=== PATIENT | male | born 1955 | race Caucasian/White ===

== ENCOUNTER 2017-04-20 09:32 | Inpatient (IN) ==
[2017-04-20] MEDS ORDERED: CeFAZolin Syr 2,000MG/20 ML 2,000 MG/20 ML SYRINGE IVPB ONE (09:49)
[2017-04-20] MEDS ORDERED: Ringers Solution, Lactated 1,000 ML IVC SCH (10:00)
[2017-04-20] MEDS ORDERED: Dexamethasone 4 MG/ML VIAL ONE (10:06)
[2017-04-20] MEDS ORDERED: *HR* FentaNYL (PF) 100 MCG/2 ML VIAL ONE (10:11)
[2017-04-20] MEDS ORDERED: Ondansetron 4 MG/2 ML VIAL ONE (10:12)
[2017-04-20] MEDS ORDERED: Lidocaine -MPF 4% 5 ML AMPUL ONE (10:12)
[2017-04-20] MEDS ORDERED: Lidocaine -MPF 2% 2 ML VIAL ONE ×2 (10:12→10:47)
[2017-04-20] MEDS ORDERED: *HR* Propofol 200 MG/20 ML VIAL IVP ONE (10:12)
[2017-04-20] MEDS ORDERED: *HR* Remifentanil 2 MG VIAL IVP ONE (10:12)
[2017-04-20] MEDS ORDERED: *HR* Rocuronium Bromide 50 MG/5 ML VIAL ONE (10:12)
[2017-04-20] MEDS ORDERED: Lidocaine 1% 20 ML MDV ONE (10:36)
--- NOTE | 2017-04-20 10:36 | Anesthesia Evaluation PreOp ---
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), Other ( vertebral artery occlusion) Other Medical History: Denies Any Significant HX Anesthesia History: No Prior Anesthetic Complications, Past Anesthesia (Left CEA ,) Alcohol Use: occasionally Drug use: none Medications and Allergies Aspirin 325 mg PO HS 03/08/17 [History] Atorvastatin [Lipitor] 40 mg PO HS 03/08/17 [History] Clopidogrel Bisulfate [Plavix] 75 mg PO DAILY #30 tablet 04/09/17 [Rx] 3 Allergy/AdvReac Type Severity Reaction Status Date / Time Varenicline [From Chantix] AdvReac Migraine Verified 04/20/17 10:00 - Meds/Allergy Pre-op Review Medications Reviewed: Yes Allergies Reviewed: Yes Beta Blockers on Current Med List: No Anesthesia Results - Labs Laboratory Tests 04/09/17 04/09/17 04/09/17 08:40 08:40 08:40 WBC 6.3 Hgb 14.5 Hct 42.5 Plt Count 258 PT 9.9 INR 0.9 Sodium 139 Potassium 3.9 Chloride 109 H Carbon Dioxide 25 BUN 20 Creatinine 0.97 Est GFR ( Amer) > 60 Est GFR (Non-Af Amer) > 60 BUN/Creatinine Ratio 21 Glucose 108 H Calculated Osmolality 291 Calcium 9.4 - Imaging EKG: report reviewed, image reviewed (SINUS BRADYCARDIA WITH FIRST DEGREE AV BLOCK) Anesthesia Exam Last Vital Signs Temp 98.3 F 04/20/17 09:51 Pulse 59 04/20/17 09:51 Resp 18 04/20/17 09:51 BP 129/68 04/20/17 09:51 Pulse Ox 98 04/20/17 09:51 Weight: 75 kg NPO (# of Hours): > 8 hrs - HEENT Pupil (Motor): Pupils equal, EOMI Mallampati: II Teeth: Edentulous Denture Type: Upper: Complete, Lower: Complete Oral Opening: Greater than 3 - NURSE OB LOC: Oriented NURSE OB Motor: Deficit RUE - Cardiac Rhythm: Regular Murmur: None - Pulmonary Breath Sounds: bilateral Clear Respiratory Effort: Symmetrical Anesthesia Assess/Plan ASA Score: 3 Modified Wharton Scale for Level of Consciousness: Cooperative, oriented, and tranquil Anesthetic Plan: General Monitoring Plan: Standard Monitors, A-Line Recovery Plan: PACU
[2017-04-20] MEDS ORDERED: Heparin 1,000 UNITS/500 mL 500 ML ONE ×2 (10:37→10:44)
--- NOTE | 2017-04-20 10:47 | History & Physical Report ---
Date of Encounter: 04/20/17 Time of Encounter: 10:47 24 Hour HP Update - Instructions Instructions: If the History and Physical is less than 30 days old and was completed prior to A.M. admission and or procedure and has NOT been updated on calendar day of procedure please complete this update prior to performing procedure. - Update Patient reports changes in Medical Condition: No Changes in examination, assessment, or condition: No Changes in Medication: No Preop tests/diagnostics Reviewed: Yes Surgery Remains Indicated: Yes Consent for Planned Operative Procedure(s) Verified: Yes - Pre-Operative Checklist Preoperative Checklist Indicated: Yes Prophylactic Antibiotic Ordered: Yes Home Medications Include Beta Jessica: No Beta Jessica Taken Today (Day of Surgery): No Beta Jessica Taken Yesterday (Day Prior to Surgery): No Is VTE Prophylaxis Indicated?: Yes
[2017-04-20] MEDS ORDERED: Nitroglycerin 25 MG/250 ML INFUS..BTL IVC ONE (10:54)
[2017-04-20] MEDS ORDERED: Acetaminophen IV 1,000 MG/100 ML INFUS..BTL ONE (10:54)
[2017-04-20] MEDS ORDERED: EPHEDrine 50 MG/ML VIAL ONE (11:20)
[2017-04-20] MEDS ORDERED: *HR* PHENYLEPHRINE 1,000 MCG/10 ML SYRINGE IVP ONE (11:52)
[2017-04-20] MEDS ORDERED: *HR* Heparin 5,000 UNIT/ML VIAL ONE (12:12)
[2017-04-20] MEDS ORDERED: *HR* Promethazine 25 MG/ML VIAL IVP PRN (12:21)
[2017-04-20] MEDS ORDERED: Ondansetron 4 MG/2 ML VIAL IVP ONE (12:21)
[2017-04-20] MEDS ORDERED: *HR* OxyCODONE Immed Rel 5 MG TABLET PO PRN (12:21)
[2017-04-20] MEDS ORDERED: *HR* Meperidine 25 MG/ML SYRINGE IVP PRN (12:21)
--- NOTE | 2017-04-20 12:43 | Anesthesia Procedures ---
Date of Encounter: 04/20/17 Time of Encounter: 11:20 Procedures: Anesthesia - Arterial Line Time out performed: Yes Size (Gauge): 20 Length (inches): 1 3/4 Technique Used: sterile prep Post-Procedure: line taped into place, dry sterile dressing placed Patient tolerated procedure: no complications, other (pt under general anesthesia) Complications: none Site: Radial L Vitals: see OR record
[2017-04-20] MEDS ORDERED: ceFAZolin 1,000 MG, Sodium Chloride IRRigation 1,000 ML IR ONE (13:10)
[2017-04-20] MEDS ORDERED: Neostigmine Methylsulfate 3 MG/3 ML SYRINGE ONE (13:17)
[2017-04-20] MEDS ORDERED: Protamine Sulfate 50 MG/5 ML VIAL IVP ONE (13:25)
[2017-04-20] MEDS ORDERED: Esmolol 100 MG/10 ML VIAL IVP ONE (13:49)
--- NOTE | 2017-04-20 13:51 | Operative Note ---
Date of procedure: 04/20/17 Pre-op diagnosis: right carotid stenosis Post-op diagnosis: same Procedure: right carotid endarterectomy with 8 Fr shunt and bovine periocardial patch angioplasty Complications: none Anesthesia: GETA Surgeon: Koby Yu Was there an respiratory care assistant present: No Estimated blood loss (cc): 100 Specimen: 0 Condition: stable Disposition: PACU Procedure in Detail: History Mr. Handy is a 61-year-old white male who was referred from the [place] with abnormal cervical vascular studies. The patient was found to have bilateral carotid disease, bilateral vertebral disease, and innominate artery stenosis. He had previously undergone a left carotid endarterectomy and had recently undergone an innominate artery stent angioplasty. He was found to have a high- grade right internal carotid artery stenosis that was underestimated on the original CT scan. He now comes for surgery for the right carotid stenosis. Procedure After informed consent was obtained the patient was taken to the operating room. General endotracheal anesthesia was established under arterial line pressure monitoring. The right neck was then sterilely prepped and draped. A timeout protocol was observed. An incision was made parallel to the anterior border of the right sternocleidomastoid muscle. Dissection was carried down to the carotid sheath. The contents of the carotid sheath were identified and the nerve structures were preserved. Control was obtained of the carotid arteries selectively. 5000 units of heparin were then given intravenously. After 3 minute delay the carotids were clamped with the internal carotid artery clamped first. Using an 11 blade knife and Jang scissors an arteriotomy was made in the distal common carotid artery with extension up on into the internal carotid artery. An 8-Citizen Of [place] shunt was then inserted atraumatically. Patency of the shunt was confirmed by the use of intraoperative Doppler. Evaluation of the plaque revealed a septated plaque with areas of chronic thrombus in the bulbar area. The bulb itself appeared be somewhat dilated though not aneurysmal. The endarterectomy was begun at the distal aspect, carotid artery. A dissection plane was established proximally and distally. The plaque was divided at the midportion of the common carotid artery. The superior thyroid and external carotid artery were endarterectomized. The endpoint on the internal carotid artery was smooth. No tacking sutures were necessary. The bed of the vessel was then inspected for any residual debris. After this was accomplished the patch angioplasty was performed using bovine pericardium. This was sewn in position using 2 6-0 Prolene sutures. Leaving a small space open on the suture line the shunt was clamped divided and removed. The final few sutures were placed. Excellent bleeding was permitted then from the internal carotid artery which was then reclamped. The external and its parathyroid and common carotid artery were opened and finally the internal was reopened. There is no hemodynamic distress with this maneuver. There is no change in rhythm. Patient demonstrated excellent pulses and multiphasic Doppler signals throughout the vessels as expected in the carotid system. The wound was then irrigated. Hemostasis was achieved. A superficial cervical block using half percent Marcaine was performed. 25 mg of protamine were administered intravenously. No drains were placed. The wound was then closed in layers using absorbable suture. The patient was extubated in the operating room. He was neurologically intact. He was taken to the recovery room in stable condition.
[2017-04-20] MEDS ORDERED: *HR* Labetalol 100 MG/20 ML MDV ONE (14:10)
[2017-04-20] MEDS: *HR* Labetalol 20 MG/4 ML SYRINGE IVP PRN ×4 (14:10→14:30)
[2017-04-20] MEDS: MORPHINE SUL Oral CONC 10 MG/0.5 ML ORAL.SYG SL PRN ×2 (14:25→14:35)
[2017-04-20] MEDS ORDERED: Ondansetron 4 MG/2 ML VIAL IVP PRN (15:08)
[2017-04-20] MEDS ORDERED: *HR* HYDROcodone/Acet 5/325 mg TABLET PO PRN (15:08)
[2017-04-20] MEDS ORDERED: Naloxone 0.4 MG/ML INJ IVP PRN (15:08)
[2017-04-20] MEDS ORDERED: Ringers Solution, Lactated 1,000 ML ONE (15:10)
--- NOTE | 2017-04-20 15:22 | Anesthesia Evaluation Post Op ---
Date of Encounter: 04/20/17 Time of Encounter: 15:21 - Vital Signs Vital Signs: Vital Signs/O2 Sat, Most Current Temp Pulse Resp BP Pulse Ox 97.3 F L 78 16 148/72 96 04/20/17 15:25 04/20/17 15:25 04/20/17 15:25 04/20/17 15:25 04/20/17 15:25 - Lungs Lungs: Clear Ascult./Percussion - Airway Airway: Non-obstructed - Cardiovascular Regular Rate - Mental Status Mental Status: Alert & Oriented, Answers Appropriately - Pain Pain Scale: 0 Pain Scale used: Numeric (1 - 10) - Nausea Vomiting Nausea Vomiting: Not Present - Hydration Hydration: Ice chips, Joshua catheter
[2017-04-20] MEDS: CeFAZolin Premix DUPLEX 2,000 MG/50 ML BAG IVPB SCH (16:08)
[2017-04-20] MEDS: Acetaminophen 325 MG TABLET PO PRN (16:09)
[2017-04-20] MEDS: *HR* Metoprolol 5 MG/5 ML VIAL IVP SCH (19:04)
[2017-04-20] MEDS ORDERED: Aspirin 325 MG TABLET PO SCH (21:00)
[2017-04-21] MEDS: CeFAZolin Premix DUPLEX 2,000 MG/50 ML BAG IVPB SCH ×2 (00:22→07:55)
[2017-04-21] MEDS: *HR* Metoprolol 5 MG/5 ML VIAL IVP SCH ×3 (00:24→11:27)
[2017-04-21 03:52] LABS: Basophils % 0.2 %; Eosinophils % 0.1 %; Hematocrit 37.5 % (37.5-50.1); Hemoglobin 12.7 g/dL (12.9-16.9); Immature Granulocytes % 0.4 % (0-4); Lymphocytes # 1.5 K/mcL (0.6-4.6); Mean Corpuscular HGB Conc 33.9 g/dL (31.6-35.5); Mean Corpuscular Hemoglobin 30.9 pg (28.0-33.3); Mean Corpuscular Volume 91.2 fL (83.0-100.0); Monocytes # 0.7 K/mcL (0.0-1.3); Monocytes % 6.4 %; Neutrophils # 8.4 K/mcL (1.6-8.9); Platelet Count 354 K/mcL (140-400); Red Blood Count 4.11 M/mcL (4.19-5.50); Red Cell Distribution Width 13.1 % (11.5-14.5); Segmented Neutrophils % 78.9 %
[2017-04-21 05:21] LABS: BUN/Creatinine Ratio 14 (6-26); Blood Urea Nitrogen 12 mg/dL (8-23); Calcium 9.2 mg/dL (8.6-10.3); Carbon Dioxide 24 mEq/L (23-29); Chloride 106 mEq/L (98-107); Glucose 113 mg/dL (70-105); Osmolality,Calculated 289 (280-300); Potassium 4.1 mEq/L (3.5-5.1); Sodium 139 mEq/L (136-145); eGFR For African Americans > 60 (> 60); eGFR For Non-African Americans > 60 (> 60)
[2017-04-21 11:09] VITALS: BP 155/68
[2017-04-21] MEDS: Acetaminophen 325 MG TABLET PO PRN (12:38)
--- NOTE | 2017-04-21 13:18 | Discharge Summary ---
Orders not resulted at time of discharge: Pending orders 04/19/17 Red Blood Cells [BBK] Routine Date of Encounter: 04/21/17 Time of Encounter: 13:15 - Discharge Diagnosis (1) Hyperlipidemia Priority: Secondary Status: Chronic Comments: Patient is under medical treatment for hyperlipidemia. Qualifiers: Hyperlipidemia type: unspecified (2) Carotid artery stenosis Priority: Primary Status: Acute Comments: Patient had successful right carotid endarterectomy. He had recently undergone a successful left carotid endarterectomy. Qualifiers: Laterality: bilateral Qualified Code(s): I65.23 - Occlusion and stenosis of bilateral carotid arteries (3) Innominate artery stenosis Priority: Secondary Status: Resolved Comments: Patient had recently undergone innominate artery stent angioplasty. (4) Tobacco abuse Priority: Secondary Status: Resolved Comments: Patient has been tobacco free for the last few weeks. - Hospital Course Hospital course: Mr. Handy is a 61 year old male With known cerebrovascular disease. He is status post a left carotid endarterectomy. He is status post an innominate artery stent angioplasty. He is now admitted for high-grade right carotid artery stenosis. The patient underwent a right carotid endarterectomy with patch angioplasty under general anesthesia. He had no periprocedural complications. The patient did well. He was felt fit for discharge on the afternoon of postoperative day #1. Instructions were given in regards to his activities and wound care and medications prior to discharge. - Time Spent with Patient Total time spent providing and/or coordinating discharge services: - Discharge Medications Home Medications: Aspirin 325 mg PO HS 03/08/17 [History] Atorvastatin [Lipitor] 40 mg PO HS 03/08/17 [History] Clopidogrel Bisulfate [Plavix] 75 mg PO DAILY #30 tablet 04/09/17 [Rx] Allergies/Adverse Reactions: 3 Allergy/AdvReac Type Severity Reaction Status Date / Time Varenicline [From Chantix] AdvReac Migraine Verified 04/20/17 10:00 Date of admission: 04/20/17 15:57 Primary care physician: PCP [place] Consults: none Procedure(s) Performed: Right carotid endarterectomy with bovine pericardial patch angioplasty Discharging clinician: Koby Yu Anticipated date of discharge: 04/21/17 Exam Vital Signs, Last 4 Hours Temp Pulse Resp BP 04/21/17 11:05 97.3 F L 70 12 155/68 General: Present: Conversant, No Apparent Distress, Well developed, Well nourished HEENT: Present: Atraumatic, Normocephaly, Trachea midline Neck: Absent: JVD, Midline deformity, Tracheal deviation Cardiac: Present: Reg Rate and Rhythm, Normal S1 and S2 Lungs: Present: Normal Breath Sounds Neuro: Present: Alert and responsive, No focal deficits noted, Cranial nerves grossly intact, Motor nerves grossly intact, Sensory nerves grossly intact Vascular: Present: Surgical incisions (Right cervical incision is clean and dry. There is no hematoma or ecchymosis.) Skin: Present: No rashes noted on visualized skin - Patient Status Disposition: Home, Self-Care Condition: Good Functional capacity at discharge: independent ambulation Overall status at discharge: patient is progressing back to baseline - Discharge Instructions Follow Up With: ANNE,PCP [Primary Care Provider] - 04/30/17 10:15 am Koby Yu MD [Partnered Physician] - 05/12/17 11:45 am Additional Instructions: Use ice pack on right neck incision for the next 48 hours. Resume usual home medications. Keep right neck incision dry for 5 days postoperatively. No driving for 2 weeks. No lifting greater than 10 pounds. No manual labor. - Diet and Activity Activity: increase activity as tolerated Diet: advance to your usual diet - VTE Documentation of Mechanical Device: Intermittent pneumatic compression device
== END 2017-04-21 13:48 | disposition home or self-care (01) | DRG 39 ==
LOC: SAMDAY 09:32 → 2NNU 15:57
PROVIDERS: ADMIT Surgery Vascular Surgery; ATTEND Surgery Vascular Surgery

== ENCOUNTER 2019-07-25 08:53 | Inpatient (IN) ==
[~2019-07-25 08:53] MED LIST: ceFAZolin 1,000 MG, Sodium Chloride IRRigation 1,000 ML IR ONE
[2019-07-25] MEDS ORDERED: CeFAZolin Syr 2,000MG/20 ML 2,000 MG/20 ML SYRINGE IVPB ONE (09:28)
[2019-07-25] MEDS ORDERED: Ringers Solution, Lactated 1,000 ML IVC SCH (09:30)
[2019-07-25 10:14] LABS: Basophils # 0.1 K/mcL (0.0-0.2); Basophils % 1.3 %; Eosinophils # 0.3 K/mcL (0.0-0.6); Eosinophils % 3.4 %; Hematocrit 46.6 % (37.5-50.1); Hemoglobin 15.4 g/dL (12.9-16.9); Immature Granulocytes % 0.7 % (0-4); Lymphocytes # 2.2 K/mcL (0.6-4.6); Lymphocytes % 24.8 %; Mean Corpuscular Volume 90.8 fL (83.0-100.0); Mean Platelet Volume 10.4 fL (9.4-12.4); Monocytes # 0.7 K/mcL (0.0-1.3); Monocytes % 8.3 %; Neutrophils # 5.4 K/mcL (1.6-8.9); Platelet Count 327 K/mcL (140-400); Red Blood Count 5.13 M/mcL (4.19-5.50); Red Cell Distribution Width 12.2 % (11.5-14.5); Segmented Neutrophils % 61.5 %; White Blood Count 8.7 K/mcL (4.3-11.1)
[2019-07-25 10:26] LABS: INR 0.9; Prothrombin Time 10.2 Seconds (9.4-12.1)
[2019-07-25 10:29] LABS: Activated Partial Thrombo Time 34.3 Seconds (26.0-36.0)
[2019-07-25 10:29] LABS: BUN/Creatinine Ratio 21 (6-26); Blood Urea Nitrogen 20 mg/dL (8-23); Calcium 9.5 mg/dL (8.6-10.3); Carbon Dioxide 25 mEq/L (23-29); Chloride 105 mEq/L (98-107); Glucose 106 mg/dL (70-105); Osmolality,Calculated 285 (280-300); Potassium 3.7 mEq/L (3.5-5.1); Sodium 136 mEq/L (136-145); eGFR For African Americans > 60 (> 60); eGFR For Non-African Americans > 60 (> 60)
[2019-07-25] MEDS ORDERED: Famotidine 20 MG/2 ML VIAL IVP ONE (10:44)
[2019-07-25] MEDS ORDERED: *HR* Labetalol 20 MG/4 ML SYRINGE IVP PRN ×2 (10:44→16:48)
[2019-07-25] MEDS ORDERED: *HR* OxyCODONE Immed Rel 5 MG TABLET PO PRN (10:44)
[2019-07-25] MEDS ORDERED: Acetaminophen IV 1,000 MG/100 ML INFUS..BTL IVPB ONE (10:44)
[2019-07-25] MEDS ORDERED: *HR* Promethazine 25 MG/ML VIAL IVP PRN (10:44)
[2019-07-25] MEDS ORDERED: *HR* HYDROmorphone (PF) 1 MG/ML SYRINGE IVP PRN (10:44)
[2019-07-25] MEDS ORDERED: *HR* HYDROmorphone 2 MG TABLET PO PRN (10:44)
[2019-07-25] MEDS ORDERED: Protamine Sulfate 50 MG/5 ML VIAL IVP ONE (12:05)
[2019-07-25] MEDS ORDERED: Heparin 1,000 UNITS/500 mL 1,000 ML ONE (12:05)
[2019-07-25] MEDS ORDERED: *HR* Midazolam HCl 2 MG/2 ML VIAL ONE (12:10)
[2019-07-25] MEDS ORDERED: *HR* FentaNYL (PF) 100 MCG/2 ML VIAL ONE (12:10)
[2019-07-25] MEDS ORDERED: *HR* Propofol 200 MG/20 ML VIAL IVP ONE (12:10)
[2019-07-25] MEDS ORDERED: Lidocaine -MPF 2% 2 ML VIAL ONE (12:12)
[2019-07-25] MEDS ORDERED: *HR* Rocuronium Bromide 50 MG/5 ML VIAL ONE (12:13)
[2019-07-25] MEDS ORDERED: *HR* Succinylcholine 200 MG/10 ML VIAL IVP ONE (12:13)
[2019-07-25] MEDS ORDERED: *HR* Remifentanil 2 MG VIAL IVP ONE (12:14)
[2019-07-25] MEDS ORDERED: Heparin 1,000 UNITS/500 mL 500 ML ONE (12:16)
[2019-07-25] MEDS ORDERED: EPHEDrine 50 MG/ML VIAL ONE ×2 (12:40→15:04)
[2019-07-25] MEDS ORDERED: Ondansetron 4 MG/2 ML VIAL ONE (12:57)
[2019-07-25] MEDS ORDERED: Dexamethasone 4 MG/ML VIAL ONE (12:57)
[2019-07-25] MEDS ORDERED: *HR* Heparin 5,000 UNIT/ML VIAL ONE ×2 (13:38→14:33)
[2019-07-25] MEDS ORDERED: *HR* HYDROcodone/Acet 5/325 mg TABLET PO PRN (16:48)
[2019-07-25] MEDS ORDERED: Naloxone 0.4 MG/ML INJ IVP PRN (16:48)
[2019-07-25] MEDS ORDERED: Acetaminophen 325 MG TABLET PO PRN (16:48)
[2019-07-25] MEDS: CeFAZolin 2 GM/120 ML BAG IVPB SCH (20:13)
[2019-07-25] MEDS ORDERED: Aspirin 325 MG TABLET PO SCH (21:00)
[2019-07-26 02:51] LABS: Basophils % 0.1 %; Hematocrit 39.2 % (37.5-50.1); Immature Granulocytes % 0.5 % (0-4); Lymphocytes % 8.2 %; Mean Corpuscular HGB Conc 33.2 g/dL (31.6-35.5); Mean Corpuscular Hemoglobin 30.6 pg (28.0-33.3); Mean Corpuscular Volume 92.2 fL (83.0-100.0); Monocytes # 0.5 K/mcL (0.0-1.3); Neutrophils # 10.1 K/mcL (1.6-8.9); Platelet Count 270 K/mcL (140-400); Red Blood Count 4.25 M/mcL (4.19-5.50); Red Cell Distribution Width 12.6 % (11.5-14.5); Segmented Neutrophils % 87.2 %; White Blood Count 11.6 K/mcL (4.3-11.1)
[2019-07-26] MEDS: CeFAZolin 2 GM/120 ML BAG IVPB SCH ×2 (03:30→10:48)
[2019-07-26 07:37] VITALS: BP 106/60
[2019-07-26] MEDS ORDERED: Metoprolol XL (24 HR) Succ 50 MG TAB.ER.24H PO SCH (09:00)
[2019-07-26] MEDS ORDERED: Losartan/HCTZ 50-12.5 TABLET PO SCH (09:00)
[2019-07-26 09:33] LABS: BUN/Creatinine Ratio 18 (6-26); Blood Urea Nitrogen 19 mg/dL (8-23); Calcium 9.2 mg/dL (8.6-10.3); Carbon Dioxide 27 mEq/L (23-29); Chloride 102 mEq/L (98-107); Glucose 117 mg/dL (70-105); Osmolality,Calculated 285 (280-300); Potassium 4.1 mEq/L (3.5-5.1); Sodium 136 mEq/L (136-145); eGFR For African Americans > 60 (> 60); eGFR For Non-African Americans > 60 (> 60)
== END 2019-07-26 11:49 | disposition home or self-care (01) | DRG 253 ==
LOC: SAMDAY 08:53 → 2NNU 16:40
PROVIDERS: ADMIT Surgery Vascular Surgery; ATTEND Surgery Vascular Surgery